=== PATIENT | female | born 1990 ===

== ENCOUNTER 2018-06-02 11:13 | Emergency (ER) | payer OTHER ==
[2018-06-02 11:33] VITALS: BMI 34.2
[2018-06-02 11:34] VITALS: O2SAT 99
--- NOTE | 2018-06-02 12:08 | ED PDOC ---
Arrival/HPI - General Time Seen by Provider: 06/02/18 11:16 Historian: Patient - History of Present Illness Narrative History of Present Illness (Text): 06/02/18 12:00 Patient is a 27 year old female whose past medical history includes right knee surgery, who presents to the Emergency Department with her boyfriend for back pain radiating to left leg. Patient states that her back pain started 2 days ago and has been persistent. She mentions having difficulty walking with her back straight secondary to the pain. She notes going to the hospital in September 2017 with similar symptoms and was diagnosed with sciatica. Of note her pain this time is worse than in September. She takes Alieve for the pain and last dose was last night. Patient also mentions having suprapubic pain that started 3 days ago. Of note she has experienced increased urinary frequency that started last week but has since resolved. Patient denies fevers, chills, cough, shortness of breath, chest pain, dyspnea on exertion, nausea, vomiting, stool incontinence, urinary incontinence or retention, numbness, motor weakness , dysuria, headache, dizziness, or any other complaint. PMD: Time/Duration: < week Symptom Onset: Sudden Symptom Course: Unchanged Context: Standing Past Medical History - Provider Review Nursing Documentation Reviewed: Yes Family/Social History - Physician Review Nursing Documentation Reviewed: Yes Family/Social History: No Known Family HX Allergies/Home Meds Allergies/Adverse Reactions: Allergies No Known Allergies Allergy (Verified 06/02/18 11:59) Review of Systems - Physician Review All systems were reviewed & negative as marked: Yes - Review of Systems Constitutional: absent: Fevers Respiratory: absent: SOB Physical Exam - Physical Exam Narrative Physical Exam (Text): Constitutional: Appears uncomfortable. Head: Normocephalic. Atraumatic. Eyes: PERRL. ENT: Moist mucous membranes. Neck: Supple. Cardiovascular: Regular rate. Chest: No tenderness. Respiratory: Clear to auscultation bilaterally. GI: Soft. Nontender. Nondistended. Back: No midline or CVA tenderness. Positive left leg raise. Musculoskeletal: No tenderness or swelling of extremities. Skin: No rash. Neurologic: Alert, no focal deficit. Motor 5/5 x 4. Sensation to light touch intact in saddle area. Vital Signs Reviewed: Yes Vital Signs Temp Pulse Resp BP Pulse Ox 06/02/18 11:33 97.9 F 64 20 117/68 99 Temperature: Afebrile Blood Pressure: Normal Pulse: Regular Respiratory Rate: Normal Appearance: Positive for: Uncomfortable Mental Status: Positive for: Alert and Oriented X 3 Medical Decision Making ED Course and Treatment: 06/02/18 12:11 Impression: Patient is a 27 year old female who presents to the emergency department complaining of back pain radiating to her left leg, which started 2 days ago. Differential Diagnosis included but are not limited to: Sciatica, rule out UTI/ . Plan: --Valium --Toradol -- Urince culture --Urinealysis -- Reassess and disposition Progress Notes: Patient appears comfortable in ED stretcher, UA negative for infection or . Will discharge, continue NSAIDs, muscle relaxants, f/u PMD, return to ED for worsening pain, fever, vomiting, dyspnea, or any other problem. - Lab Interpretations Lab Results: Lab Results 06/02/18 12:00: Urine Color Yellow, Urine Appearance Clear, Urine pH 7.0, Ur Specific [place] 1.025, Urine Protein Negative, Urine Glucose (UA) Negative, Urine Ketones Negative, Urine Blood Negative, Urine Nitrate Negative, Urine Bilirubin Negative, Urine Urobilinogen 0.2, Ur Leukocyte Esterase Trace H, Urine RBC 0 - 2, Urine WBC 0 - 2, Ur Epithelial Cells 1 - 3, Urine Bacteria Few , Urine HCG, Qual Negative - Medication Orders Current Medication Orders: Discontinued Medications Diazepam (Valium) 5 mg PO ONCE ONE PRN Reason: Protocol Stop: 06/02/18 12:00 Last Admin: 06/02/18 12:30 Dose: 5 mg Ketorolac Tromethamine (Toradol) 60 mg IM STAT STA Stop: 06/02/18 12:00 Last Admin: 06/02/18 12:30 Dose: 60 mg MAR Pain Assessment Document 06/02/18 12:30 SF (Rec: 06/02/18 12:30 SF [id number] Pain Reassessment Is this a pain reassessment? Yes Sleep Is patient sleeping during reassessment? No Presence of Pain Presence of Pain Yes IM Administration Charges Document 06/02/18 12:30 SF (Rec: 06/02/18 12:30 SF [id number]) Injection Site MAR Injection Site Left Deltoid Charges for Administration # of IM Administrations 1 - Scribe Statement The provider has reviewed the documentation as recorded by the Scribe Henrique Franklin Provider Scribe Attestation: All medical record entries made by the Scribe were at my direction and personally dictated by me. I have reviewed the chart and agree that the record accurately reflects my personal performance of the history, physical exam, medical decision making, and the department course for this patient. I have also personally directed, reviewed, and agree with the discharge instructions and disposition. Disposition/Present on Arrival - Present on Arrival Any Indicators Present on Arrival: No - Disposition Have Diagnosis and Disposition been Completed?: Yes Diagnosis: Sciatica Disposition: HOME/ ROUTINE Disposition Time: 13:01 Patient Plan: Discharge Condition: STABLE Discharge Instructions (ExitCare): Sciatica Prescriptions: Famotidine [Pepcid] 1 tab PO BID #14 tab Ibuprofen [Motrin] 600 mg PO Q6 #25 tab Methocarbamol [Robaxin-750] 1 tab PO Q8H #12 tablet Referrals: Shaik Emerson MD [Primary Care Provider] - Follow up with primary
[2018-06-02 12:36] LABS: URINE APPEARANCE CLEAR (CLEAR); URINE BILIRUBIN NEGATIVE (NEGATIVE); URINE BLOOD NEGATIVE (NEGATIVE); URINE COLOR YELLOW (YELLOW); URINE GLUCOSE (UA) NEGATIVE (NEGATIVE); URINE LEUKOCYTE ESTERASE TRACE Leu/uL (NEGATIVE); URINE PROTEIN NEGATIVE mg/dL (<30 mg/dL); URINE UROBILINOGEN 0.2 E.U./dL (<1 E.U./dL)
[2018-06-02 12:40] LABS: HCG,QUALITATIVE URINE NEGATIVE (NEGATIVE)
[2018-06-02 12:57] LABS: URINE BACTERIA FEW (NEG); URINE RBC 0 - 2 /hpf (0-2); URINE WBC 0 - 2 /hpf (0-6)
[2018-06-02 13:09] VITALS: BP 132/70; PULSE 80; RESP 18; TEMP 98.6
== END 2018-06-02 13:10 | disposition home or self-care (01) ==
LOC: MERGE 11:13 → ED 11:13
DX: M54.30 Sciatica, unspecified side (principal)
CPT/HCPCS: 81001; 84703; 87086; 96372; 99284; J1885